=== PATIENT | female | born 1965 | race Caucasian/White ===

== ENCOUNTER 2018-12-06 01:06 | Emergency (ER) | payer SELFPAY ==
[2018-12-06 02:04] VITALS: TEMP 97.5
--- NOTE | 2018-12-06 02:12 | RAD ---
LEFT RIBS, THREE VIEWS. 12/06/2018 CLINICAL HISTORY: Left-sided chest pain. COMPARISON: None. TECHNIQUE: Three views of the left ribs. FINDINGS: There is no acute or healing fracture within the left ribs. There is no lytic or sclerotic bone lesion. Overlying soft tissues appear normal. Within the thorax, the cardiac size is minimally enlarged. Thoracic aorta is tortuous. Lungs appear clear. Pleural spaces are clear. No pneumothorax. Bowel gas pattern within the upper abdomen appears normal. Right upper quadrant cholecystectomy clips are present. IMPRESSION: 1. No acute finding within the left ribs. Electronically signed by: Mansi Dee DO 12/06/2018 2:10 AM [employer]
--- NOTE | 2018-12-06 02:13 | ED.PDOC ---
History of Present Illness - General Chief Complaint: General Stated Complaint: rib pain Time Seen by Provider: 12/06/18 01:55 Source: patient Exam Limitations: no limitations - History of Present Illness Initial Comments: PT IS WORRIED SHE BROKE SOME L SIDED RIBS. HAS ASTHMA WAS COUGHING HARD 2 DAYS AGO WITH SUBSEQUENT CHEST PAIN. MOVED FILE CABINET YESTERDAY NOW SHE FEELS LIKE HER RIBS ARE POPPING. Severity: moderate Improving Factors: nothing Worsening Factors: movement, other - DEEP BREATH Associated Symptoms: chest pain Home Medications: Ambulatory Orders Cyclobenzaprine HCl [Flexeril] 10 mg PO TID PRN #15 tab 12/06/18 Indomethacin 50 mg PO TID PRN #14 cap 12/06/18 Review of Systems - Review of Systems Constitutional: Denies: chills, fever EENTM: States: no symptoms reported Respiratory: States: cough. Denies: short of breath, wheezing Cardiology: States: chest pain. Denies: palpitations, syncope Gastrointestinal/Abdominal: Denies: abdominal pain, nausea, vomiting Genitourinary: States: no symptoms reported Musculoskeletal: States: no symptoms reported Skin: States: no symptoms reported Neurological: States: no symptoms reported Endocrine: States: no symptoms reported Hematologic/Lymphatic: States: no symptoms reported Past Medical History (General) - Patient Medical History Hx Asthma: Yes Hx Hypertension: Yes Surgical History: cholecystectomy, other - Vaccination History Hx Tetanus, Diphtheria Vaccination: No Hx Influenza Vaccination: No - Social History Hx Tobacco Use: No Hx Alcohol Use: No Family Medical History - Family History Mother Family History: Unknown Physical Exam - Physical Exam General Appearance: No apparent distress, Obese Eye Exam: bilateral normal Ears, Nose, Throat: hearing grossly normal, normal ENT inspection Neck: non-tender, full range of motion, supple Respiratory: lungs clear, normal breath sounds, other - TTP STERNAL AND L CHEST WALL T6-8. NO CREPITUS, NO SUB Q EMPHYSEMA. Cardiovascular/Chest: regular rate, rhythm, no murmur Gastrointestinal/Abdominal: normal bowel sounds, non tender, soft, no organomegaly Back Exam: normal inspection, no CVA tenderness, no vertebral tenderness Extremity: normal range of motion, normal inspection Neurologic: alert, normal mood/affect Skin Exam: normal color, warm/dry, other - NO ECCHYMOSIS Lymphatic: no adenopathy Progress - EKG/XRAY/CT XRAY: RIBS/CHEST DENNIS Departure - Departure Clinical Impression: Contusion, chest wall Qualifiers: Encounter type: initial encounter Laterality: left Qualified Code(s): S20.212A - Contusion of left front wall of thorax, initial encounter Time of Disposition: 02:57 Disposition: Discharge to Home or Self Care Condition: Good Departure Forms: ED Discharge - Pt. Copy, Patient Portal Self Enrollment Instructions: Contusion (DC) Prescriptions: Cyclobenzaprine HCl [Flexeril] 10 mg PO TID PRN #15 tab PRN Reason: Pain Indomethacin 50 mg PO TID PRN #14 cap PRN Reason: Pain Home Medications: Ambulatory Orders Cyclobenzaprine HCl [Flexeril] 10 mg PO TID PRN #15 tab 12/06/18 Indomethacin 50 mg PO TID PRN #14 cap 12/06/18
[2018-12-06 03:08] VITALS: BP 150/90; O2SAT 99
== END 2018-12-06 03:09 | disposition home or self-care (01) ==
LOC: ER 01:06
DX: S20.212A Contusion of left front wall of thorax, initial encounter (principal); J45.909 Unspecified asthma, uncomplicated; X50.9XXA Other and unspecified overexertion or strenuous movements or postures, initial encounter; Y92.9 Unspecified place or not applicable

== ENCOUNTER → 2021-01-21 | Outpatient (CLI) | payer BC | LOC: GMA CAST 16:53 | PROVIDERS: ATTEND Family Medicine Sports Medicine | DX: Z85.850 Personal history of malignant neoplasm of thyroid (principal); I10 Essential (primary) hypertension ==